=== PATIENT | female | born 1980 | race African-American/Black ===

== ENCOUNTER → 2017-09-10 | Outpatient (CLI) | payer OTHER ==
[2017-09-10 12:41] LABS: Basophils # (auto) 0.1 uL; Basophils % (auto) 0.5 % (0.0-2.0); Eosinophils # (auto) 0 uL; Eosinophils % (auto) 0.2 % (0.0-7.0); Hematocrit 37.4 % (36.0-46.0); Hemoglobin 12.6 g/dL (12.2-16.2); Lymphocytes # (auto) 2.4 uL; Lymphocytes % (auto) 15.9 % (10.0-50.0); Mean Corpuscular Hemoglobin 29.3 pg (28.0-32.0); Mean Corpuscular Hgb Conc. 33.6 g/dL (32.0-36.0); Mean Corpuscular Volume 87.3 fL (80.0-100.0); Mean Platelet Volume 6.4 fL (6.9-10.8); Monocytes # (auto) 0.6 uL; Monocytes % (auto) 3.8 % (0.0-12.0); Neutrophils # (auto) 12.1 uL; Neutrophils % (auto) 79.6 % (37.0-80.0); Platelet Count (auto) 418 10^3/uL (140-450); Red Cell Distribution Width 13.6 % (11.8-14.3); White Blood Cell 15.3 10^3/uL (4.4-10.8)
== END ==
LOC: LAB 10:56
PROVIDERS: ATTEND Obstetrics & Gynecology
DX: Z34.80 Encounter for supervision of other normal pregnancy, unspecified trimester (principal)
CPT/HCPCS: 36415; 84144; 84702; 85025; 86703; 86762; 86850; 86900; 86901; 87086; 87340

== ENCOUNTER 2017-12-10 11:04 | Emergency (ER) | payer OTHER ==
[~2017-12-10] VITALS: Ht 170.2 cm; Wt 108.9 kg
[2017-12-10] MEDS ORDERED: SODIUM CHLORIDE 0.9% 1,000 ML IVB ONE (12:10)
[2017-12-10 15:20] VITALS: BP 116/72
== END 2017-12-10 15:22 | disposition home or self-care (01) ==
LOC: ER 11:04
DX: O21.9 Vomiting of pregnancy, unspecified (principal); O26.892 Other specified pregnancy related conditions, second trimester; E86.0 Dehydration; Z3A.24 24 weeks gestation of pregnancy
CPT/HCPCS: 96360

== ENCOUNTER → 2018-01-09 | Outpatient (CLI) | payer OTHER ==
[~2018-01-09] MED LIST: DOXY10TA OR; FAM20T PO; ONDA4TAB5 PO; PREN-153 OR
[2018-01-09 08:03] LABS: Basophils # (auto) 0.1 uL; Basophils % (auto) 0.7 % (0.0-2.0); Eosinophils # (auto) 0.1 uL; Eosinophils % (auto) 0.7 % (0.0-7.0); Hematocrit 30.1 % (36.0-46.0); Hemoglobin 9.8 g/dL (12.2-16.2); Lymphocytes # (auto) 2.2 uL; Lymphocytes % (auto) 17.2 % (10.0-50.0); Mean Corpuscular Hemoglobin 28.1 pg (28.0-32.0); Mean Corpuscular Hgb Conc. 32.7 g/dL (32.0-36.0); Mean Corpuscular Volume 85.8 fL (80.0-100.0); Monocytes # (auto) 0.6 uL; Monocytes % (auto) 4.8 % (0.0-12.0); Neutrophils # (auto) 9.6 uL; Neutrophils % (auto) 76.6 % (37.0-80.0); Platelet Count (auto) 399 10^3/uL (140-450); White Blood Cell 12.6 10^3/uL (4.4-10.8)
[2018-01-09 08:30] LABS: Alcohol, Urine < 3.0 mg/dL (0-5); Amphetamine Screen, Urine NEGATIVE (NEGATIVE); Barbiturate Scree,Urine NEGATIVE (NEGATIVE); Benzodiazephine Screen, Urine NEGATIVE (NEGATIVE); Cannabinoid Screen, Urine POSITIVE (NEGATIVE); Cocaine Screen, Urine NEGATIVE (NEGATIVE); Opiate Scree,Urine NEGATIVE (NEGATIVE); Phencyclidine Screen, Urine NEGATIVE (NEGATIVE)
== END | disposition home or self-care (01) ==
LOC: LAB 06:34
PROVIDERS: ATTEND Obstetrics & Gynecology
DX: O99.810 Abnormal glucose complicating pregnancy (principal); O09.522 Supervision of elderly multigravida, second trimester; Z3A.28 28 weeks gestation of pregnancy
CPT/HCPCS: 36415; 80307; 82951; 85025

== ENCOUNTER 2018-01-29 10:00 | Observation (INO) | payer OTHER ==
[~2018-01-29] VITALS: Ht 30.5 cm; Wt 0.5 kg
[2018-01-29] MEDS ORDERED: LACTATED RINGER'S 1,000 ML IV SCH (10:07)
[2018-01-29] MEDS ORDERED: PREN-153 OR (10:49)
[2018-01-29] MEDS ORDERED: ONDA4TAB5 PO (10:49)
[2018-01-29] MEDS ORDERED: DOXY10TA OR (10:49)
[2018-01-29 11:01] LABS: Urine Bacteria FEW /hpf (None Seen); Urine Blood Negative /uL (Negative); Urine Mucus FEW (None Seen); Urine Specific Gravity 1.031 (1.001-1.035); Urine WBC 8 /hpf (0 - 5)
[2018-01-29 11:05] LABS: Amphetamine Screen, Urine NEGATIVE (NEGATIVE); Barbiturate Scree,Urine NEGATIVE (NEGATIVE); Benzodiazephine Screen, Urine NEGATIVE (NEGATIVE); Cannabinoid Screen, Urine POSITIVE (NEGATIVE); Cocaine Screen, Urine NEGATIVE (NEGATIVE); Opiate Scree,Urine NEGATIVE (NEGATIVE); Phencyclidine Screen, Urine NEGATIVE (NEGATIVE)
== END 2018-01-29 11:25 | disposition home or self-care (01) | DRG 781 ==
LOC: LDRP 10:00
PROVIDERS: ADMIT Specialist; ATTEND Specialist
DX: O21.1 Hyperemesis gravidarum with metabolic disturbance (principal); O26.893 Other specified pregnancy related conditions, third trimester; Z3A.30 30 weeks gestation of pregnancy
CPT/HCPCS: 59025; 80307; 81001; 81002; G0378; 96365

== ENCOUNTER 2018-02-13 16:20 | Observation (INO) | payer OTHER ==
[~2018-02-13] VITALS: Ht 30.5 cm; Wt 0.5 kg
[~2018-02-13 16:20] MED LIST changes: -FAM20T PO
[2018-02-13 17:22] LABS: Basophils # (auto) 0 uL; Basophils % (auto) 0.3 % (0.0-2.0); Eosinophils # (auto) 0 uL; Eosinophils % (auto) 0.2 % (0.0-7.0); Hemoglobin 10.2 g/dL (12.2-16.2); Lymphocytes # (auto) 1.6 uL; Lymphocytes % (auto) 14.8 % (10.0-50.0); Mean Corpuscular Hgb Conc. 32.8 g/dL (32.0-36.0); Mean Corpuscular Volume 85.4 fL (80.0-100.0); Monocytes # (auto) 0.6 uL; Monocytes % (auto) 5.2 % (0.0-12.0); Neutrophils # (auto) 8.7 uL; Neutrophils % (auto) 79.5 % (37.0-80.0); Nucleated Red Blood Cells % 0.1 %; Platelet Count (auto) 398 10^3/uL (140-450); Red Blood Cells 3.63 10^6/uL (4.0-5.20); Red Cell Distribution Width 15.6 % (11.8-14.3); White Blood Cell 10.9 10^3/uL (4.4-10.8)
[2018-02-13 17:32] LABS: Amphetamine Screen, Urine NEGATIVE (NEGATIVE); Barbiturate Scree,Urine NEGATIVE (NEGATIVE); Benzodiazephine Screen, Urine NEGATIVE (NEGATIVE); Cannabinoid Screen, Urine POSITIVE (NEGATIVE); Cocaine Screen, Urine NEGATIVE (NEGATIVE); Opiate Scree,Urine NEGATIVE (NEGATIVE); Phencyclidine Screen, Urine NEGATIVE (NEGATIVE)
[2018-02-13 17:33] LABS: Albumin 2.3 g/dL (3.4-5.0); BUN/Creatinine Ratio 8.1; Calcium 8.5 mg/dL (8.5-10.1); Potassium 3.5 mmol/L (3.5-5.1)
[2018-02-13 17:35] LABS: Bilirubin, Total 0.3 mg/dL (0.2-1.0)
[2018-02-13] MEDS ORDERED: LACTATED RINGER'S 1,000 ML IV ONE ×2 (17:45→19:15)
[2018-02-13] MEDS ORDERED: FAM20T PO (18:23)
[2018-02-13 18:45] LABS: Urine Bacteria NONE SEEN /hpf (None Seen); Urine Blood Negative /uL (Negative); Urine Mucus FEW (None Seen); Urine WBC 3 /hpf (0 - 5)
[2018-02-13] MEDS ORDERED: ONDANSETRON HCL 4 MG/2 ML VIAL IV ONE (19:15)
[2018-02-13] MEDS ORDERED: TERBUTALINE SULFATE 1 MG/ML 1ML VIAL SC ONE (19:18)
[2018-02-13] MEDS ORDERED: ONDANSETRON HCL 4 MG/2 ML VIAL ONE (19:18)
[2018-02-13] MEDS: TERBUTALINE SULFATE 1 MG/ML 1ML VIAL SC SCH ×3 (19:34→20:15)
[2018-02-13] MEDS ORDERED: NIFEdipine 10 MG CAP ONE (21:22)
[2018-02-13] MEDS ORDERED: NIFEdipine 10 MG CAP PO ONE (21:30)
[2018-02-13] MEDS ORDERED: BETAMETHASONE ACET (6MG/ML) 5ML VIAL ONE (22:16)
[2018-02-14] MEDS ORDERED: BETAMETHASONE ACET (6MG/ML) 5ML VIAL IM SCH (10:00)
== END 2018-02-13 23:35 | disposition home or self-care (01) | DRG 778 ==
LOC: LDRP 16:20
PROVIDERS: ADMIT Specialist; ATTEND Specialist
DX: O60.03 Preterm labor without delivery, third trimester (principal); O26.893 Other specified pregnancy related conditions, third trimester; O09.513 Supervision of elderly primigravida, third trimester; O21.2 Late vomiting of pregnancy; R53.1 Weakness; Z3A.32 32 weeks gestation of pregnancy
CPT/HCPCS: 36415; 59025; 76705; 76815; 80053; 80307; 81001; 81002; 82150; 83690; 85025; 96361; 96372; 96374; G0378; J0702; J2405; J3105; 96365; 96366

== ENCOUNTER 2018-02-14 22:08 | Observation (INO) | payer OTHER ==
[~2018-02-14 22:08] MED LIST changes: +FAM20T PO
[2018-02-14] MEDS ORDERED: BETAMETHASONE ACET (6MG/ML) 5ML VIAL IM ONE (22:45)
== END 2018-02-14 23:45 | disposition home or self-care (01) | DRG 778 ==
LOC: LDRP 22:08
PROVIDERS: ADMIT Obstetrics & Gynecology; ATTEND Obstetrics & Gynecology
DX: O60.03 Preterm labor without delivery, third trimester (principal); O21.2 Late vomiting of pregnancy; Z3A.33 33 weeks gestation of pregnancy
CPT/HCPCS: 59025; 81002; G0378